=== PATIENT | female | born 1980 | race Caucasian/White ===

== ENCOUNTER 2016-09-17 10:37 | Emergency (ER) | payer OTHER ==
[~2016-09-17] VITALS: Ht 162.6 cm; Wt 67.1 kg
[2016-09-17 10:37] VITALS: BP_SYST 111
--- NOTE | 2016-09-17 10:40 | NUR ---
BROUGHT BACK TO BED #6 AND REPORT GIVEN TO SKY
--- NOTE | 2016-09-17 10:55 | NUR ---
DANETTE Cardenas at bedside examining patient.
--- NOTE | 2016-09-17 11:05 | NUR ---
URINE SAMPLE PROVIDED BY PT, URINE TESTED FOR , NEGATIVE RESULT, AWARE.
[2016-09-17 11:09] LABS: BASOPHILS # (AUTO) 0.1 K/uL (0.0-0.2); BASOPHILS % (AUTO) 0.8 % (0.0-2.0); EOSINOPHILS # (AUTO) 0.6 K/uL (0.0-0.4); HEMATOCRIT 37.7 % (36-48); LYMPHOCYTES # (AUTO) 1.9 K/uL (1.0-5.5); LYMPHOCYTES % (AUTO) 23.5 % (20.5-51.5); MEAN CORPUSCULAR HEMOGLOBIN 32 pg (27-31); MEAN CORPUSCULAR HGB CONC 35 % (32-36); MEAN CORPUSCULAR VOLUME 94 fL (79.0-98.0); MONOCYTES # (AUTO) 0.5 K/uL (0.0-1.0); MONOCYTES % (AUTO) 5.7 % (1.7-9.3); NEUTROPHILS # (AUTO) 4.8 K/uL (1.8-7.7); PLATELET COUNT (AUTO) 305 K/uL (130-430); RED BLOOD CELL COUNT(AUTO) 4.02 MIL/uL (4.2-6.2); RED CELL DISTRIBUTION WIDTH 12.5 % (9.0-15.0); WHITE BLOOD COUNT (AUTO) 7.9 K/uL (4.8-10.8)
[2016-09-17 11:12] LABS: CREATININE 0.89 mg/dL (0.55-1.30); POTASSIUM 3.7 mmol/L (3.5-5.1)
[2016-09-17 11:16] LABS: BILIRUBIN,URINE NEGATIVE (NEGATIVE); CLARITY/URINE CLEAR (CLEAR); COLOR,URINE YELLOW (YELLOW); GLUCOSE,URINE NEGATIVE (NEGATIVE); KETONES,URINE NEGATIVE (NEGATIVE); LEUKOCYTE ESTERASE ,URINE NEGATIVE (NEGATIVE); NITRITE, URINE NEGATIVE (NEGATIVE); PH,URINE 6.5 (5.0-8.0); PROTEIN URINE NEGATIVE (NEGATIVE); UROBILINOGEN,URINE 0.2 (0.2-1.0)
[2016-09-17 11:17] LABS: ALBUMIN 3.5 g/dL (3.4-4.8); TOTAL BILIRUBIN 0.4 mg/dL (0.0-1.0); TOTAL PROTEIN, SERUM 6.9 g/dL (6.4-8.3)
[2016-09-17 11:19] LABS: BLOOD, URINE TRACE (NEGATIVE)
[2016-09-17 11:25] LABS: BACTERIA,URINE FEW /HPF (None Seen); RBC,URINE 0-3 /HPF (0-3); WBC,URINE 0-3 /HPF (0-3)
[2016-09-17] MEDS ORDERED: KETOROLAC TROMETHAMINE 60 MG/2 ML VIAL IM ONE (12:00)
--- NOTE | 2016-09-17 12:03 | NUR ---
Patient refused to take toradol IM and states, "I don't want to take it because I am not big on taking pain medication." Dr. Oleary aware.
[2016-09-17] MEDS ORDERED: IBUPROFEN 400 MG TABLET PO ONE (12:15)
--- NOTE | 2016-09-17 12:21 | NUR ---
Patient given written and verbal discharge instructions and verbalizes understanding. ER MD discussed with patient the results and treatment provided. Given copies of tests performed in ER. Patient in stable condition. ID arm band removed. Patient educated on pain management and to follow up with PMD. Pain Scale 5/10, patient states "pain is bearable" and given motrin PO. Opportunity for questions provided and answered.
== END 2016-09-17 12:21 | disposition home or self-care (01) ==
LOC: SED 10:37
DX: R31.29 Other microscopic hematuria (principal)
CPT/HCPCS: 36415; 80053; 81000-TC; 85025; 99284; J1885

== ENCOUNTER 2017-01-27 15:31 | Emergency (ER) | payer OTHER ==
[~2017-01-27] VITALS: Ht 162.6 cm; Wt 64.4 kg
[2017-01-27 15:31] VITALS: BP_SYST 121
--- NOTE | 2017-01-27 15:31 | NUR ---
Pt placed to ER bed 06. Report given to REYNALDO Powers.
--- NOTE | 2017-01-27 15:40 | NUR ---
Received Pt in bed 6. Pt c/o chest pressure 3/10 located mid epigastric pain radiating to left chest, dyspnea on inspiration x2 days. Pt stated chest pressure is a constant pain. Pt stated she has not taken any medication to alleve s/s. Normal sinus bradycardia noted on the telemonitor. O2 sat 96% room air. Lung sounds auscultated. Lung sounds auscultated, clear lung sounds noted throughout all lobes. Abd. auscultated, bowel sounds noted throughout all quadrant. Abd. soft and non distended. Pt stated she had a BM, soft form stool. Pt stated having Hx of GERD. Pt denies N/V.
--- NOTE | 2017-01-27 15:48 | NUR ---
Dr. Bonilla at bedside to assess pt.
[2017-01-27 16:01] LABS: BASOPHILS % (AUTO) 0.7 % (0.0-2.0); EOSINOPHILS # (AUTO) 0.5 K/uL (0.0-0.4); EOSINOPHILS % (AUTO) 7.6 % (0.0-4.0); HEMATOCRIT 39.9 % (36-48); HEMOGLOBIN 12.9 g/dL (12.0-16.0); LYMPHOCYTES # (AUTO) 1.6 K/uL (1.0-5.5); LYMPHOCYTES % (AUTO) 23.4 % (20.5-51.5); MEAN CORPUSCULAR HEMOGLOBIN 32 pg (27-31); MEAN CORPUSCULAR HGB CONC 32 % (32-36); MEAN CORPUSCULAR VOLUME 98 fL (79.0-98.0); MONOCYTES # (AUTO) 0.5 K/uL (0.0-1.0); NEUTROPHILS # (AUTO) 4.2 K/uL (1.8-7.7); NEUTROPHILS % (AUTO) 60.3 % (40.0-70.0); PLATELET COUNT (AUTO) 316 K/uL (130-430); RED BLOOD CELL COUNT(AUTO) 4.07 MIL/uL (4.2-6.2); WHITE BLOOD COUNT (AUTO) 6.8 K/uL (4.8-10.8)
[2017-01-27 16:12] LABS: CREATININE 0.83 mg/dL (0.55-1.30); POTASSIUM 3.9 mmol/L (3.5-5.1)
[2017-01-27 16:16] LABS: ALBUMIN 3.6 g/dL (3.4-4.8); TOTAL BILIRUBIN 0.4 mg/dL (0.0-1.0)
--- NOTE | 2017-01-27 17:06 | NUR ---
Dr. Bonilla at the bedside re evaluating Pt. Currently awaiting new orders.
[2017-01-27 17:27] VITALS: BP_SYST 110
--- NOTE | 2017-01-27 17:33 | NUR ---
Patient given written and verbal discharge instructions and verbalizes understanding. ER MD discussed with patient the results and treatment provided. Patient in stable condition. ID arm band removed. IV catheter removed intact and dressing applied, no active bleeding. Rx of xanax given. Patient educated on pain management and to follow up with PMD. Pain Scale 0/10. Opportunity for questions provided and answered.
== END 2017-01-27 17:27 | disposition home or self-care (01) ==
LOC: SED 15:31
DX: R07.89 Other chest pain (principal)
CPT/HCPCS: 36415; 71010; 80053; 84484; 85025; 93005; 99285